=== PATIENT | male | born 1985 | race Caucasian/White ===

== ENCOUNTER 2018-11-05 16:49 | Emergency (ER) | payer OTHER ==
[2018-11-05 17:00] VITALS: BP 143/76; PULSE 81; RESP 18; TEMP 98.4
--- NOTE | 2018-11-05 18:34 | XR ---
EXAMINATION TYPE: XR forearm RT DATE OF EXAM: 11/05/2018 COMPARISON: NONE HISTORY: Pain TECHNIQUE: 2 views FINDINGS: Radius and ulna appear intact. I see no fracture nor dislocation. Carpal bones are intact. Elbow joint is intact. IMPRESSION: Negative right forearm exam.
--- NOTE | 2018-11-05 18:35 | XR ---
EXAMINATION TYPE: XR elbow complete RT DATE OF EXAM: 11/05/2018 COMPARISON: NONE HISTORY: Elbow pain TECHNIQUE: 3 views FINDINGS: I see no fracture nor dislocation. Joint spaces are normal. There is no sign of elbow joint effusion. IMPRESSION: Negative right elbow exam.
--- NOTE | 2018-11-05 18:36 | XR ---
EXAMINATION TYPE: XR shoulder complete RT DATE OF EXAM: 11/05/2018 COMPARISON: NONE HISTORY: Pain TECHNIQUE: 3 views FINDINGS: There is old mid shaft fracture of the clavicle with callus formation. I see no acute fract ure nor dislocation. Glenohumeral joint is anatomic. IMPRESSION: Old clavicle fracture. No acute bony abnormality.
--- NOTE | 2018-11-05 18:36 | XR ---
EXAMINATION TYPE: XR hand complete RT DATE OF EXAM: 11/05/2018 COMPARISON: NONE HISTORY: Pain TECHNIQUE: 3 views FINDINGS: Metacarpals are intact. Joint spaces are fairly normal. I see no fracture nor dislocation. There are no erosions. IMPRESSION: Negative right hand exam.
--- NOTE | 2018-11-05 18:37 | XR ---
EXAMINATION TYPE: XR humerus RT DATE OF EXAM: 11/05/2018 COMPARISON: NONE HISTORY: Arm pain TECHNIQUE: 2 views FINDINGS: Shoulder joint and elbow joint appear intact. I see no fracture. IMPRESSION: Negative right humerus exam.
--- NOTE | 2018-11-05 19:03 | ED ---
General Adult HPI - General Chief complaint: Upper Respiratory Infection Stated complaint: Elbow injury Time Seen by Provider: 11/05/18 17:04 Source: patient, RN notes reviewed, old records reviewed Mode of arrival: ambulatory Limitations: no limitations - History of Present Illness Initial comments: 33-year-old male patient presents in ED chief complaint of pain and right upper extremity. Patient reports that back in 2012 he had a trauma in which multiple pieces of granite fell on his right upper extremity. Patient states that he did not go to the emergency department after this injury. Patient reports that he later followed up with his primary care provider but is not imaging was obtained. Patient states that within the last year he has had pain in his right shoulder as well as right elbow. 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 Patient points that this exacerbates the pain. Patient denies any recent falls or trauma. Denies any other complaints at this time. Patient requests imaging of the right upper extremity. Reports he recently saw his primary care provider who recommended physical therapy. Systemic: Pt denies fatigue, fever/chills, rash. Pt denies weakness, night sweats, weight loss. Neuro: Pt denies headache, visual disturbances, syncope or pre-syncope. HEENT: Pt denies ocular discharge or irritation, otalgia, rhinorrhea, pharyngitis or notable lymphadenopathy. Cardiopulmonary: Pt denies chest pain, SOB, heart palpitations, dyspnea on exertion. Abdominal/GI: Pt denies abdominal pain, n/v/d. : Pt denies dysuria, burning w/ urination, frequency/urgency. Denies new onset urinary or bowel incontinence. MSK: Pt deniesloss of strength or function in extremities. Neuro: Pt denies new onset weakness, paresthesias. - Related Data Allergies Allergy/AdvReac Type Severity Reaction Status Date / Time No Known Allergies Allergy Verified 11/05/18 16:56 Review of Systems ROS Statement: Those systems with pertinent positive or pertinent negative responses have been documented in the HPI. ROS Other: All systems not noted in ROS Statement are negative. Past Medical History Past Medical History: No Reported History History of Any Multi-Drug Resistant Organisms: None Reported Past Surgical History: No Surgical Hx Reported Past Psychological History: No Psychological Hx Reported Smoking Status: Current every day smoker Past Alcohol Use History: Occasional Past Drug Use History: Marijuana General Exam - General Exam Comments Initial Comments: Constitutional: NAD, AOX3, Pt has pleasant affect. HEENT: NC/AT, trachea midline, neck supple, no lymphadenopathy. Posterior pharynx non erythematous, without exudates. External ears appear normal, without discharge. Mucous membranes moist. Eyes PERRLA, EOM intact. There is no scleral icterus. No pallor noted. Cardiopulmonary: RRR, no murmurs, rubs or gallops, no JVD noted. Lungs CTAB in anterior and posterior painter. No peripheral edema. Abdominal exam: Abdomen soft and non-distended. Abdomen non-tender to palpation in all 4 quadrants. Bowel sounds active in LLQ. No hepatosplenomegaly. No ecchymosis Neuro: CN II-XII grossly intact. No nuchal rigidity. No raccon eyes, no alba sign, no hemotympanum. No cervical spinal tenderness. MSK: Right elbow mildly tender to palpation. No erythema or skin changes. Distal pulses intact and equal. Capillary refill less than 2 seconds. Painful arc positive. Empty can test positive both right-sided. No other areas of point tenderness. No posterior calf tenderness bilaterally, homans sign negative bilaterally. Posterior tibialis and radial pulse +2 bilaterally. Sensation intact in upper and lower extremities. Full active ROM in upper and lower extremities, 5/5 stregnth. Limitations: no limitations Course Vital Signs 11/05/18 16:57 Temperature 98.4 F Pulse Rate 81 Respiratory 18 Rate Blood Pressure 143/76 O2 Sat by Pulse 99 Oximetry Medical Decision Making - Medical Decision Making 33-year-old male patient presents in ED chief complaint of pain and right upper extremity. Patient reports that back in 2012 he had a trauma in which multiple pieces of granite fell on his right upper extremity. Patient states that he did not go to the emergency department after this injury. Patient reports that he later followed up with his primary care provider but is not imaging was obtained. Patient states that within the last year he has had pain in his right shoulder as well as right elbow. 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 Patient points that this exacerbates the pain. Patient denies any recent falls or trauma. Denies any other complaints at this time. Patient requests imaging of the right upper extremity. Reports he recently saw his primary care provider who recommended physical therapy. Pt VSS, afebrile. Physical exam displayed: Right elbow mildly tender to palpation. No erythema or skin changes. Distal pulses intact and equal. Capillary refill less than 2 seconds. Painful arc positive. Empty can test positive both right-sided. No other areas of point tenderness. Plain films of shoulder, humerus, hand, elbow, forearm displayed old healed clavicle fracture midshaft. Patient will be discharged with orthopedic follow-up. Case discussed with Dr. Monterroso. Disposition Clinical Impression: Clavicle fracture Disposition: HOME SELF-CARE Condition: Stable Instructions (If sedation given, give patient instructions): Shoulder Pain (ED), Arthralgia (ED) Additional Instructions: Patient to adhere to previously discussed treatment plan and will take medication(s) as directed. Patient to follow up with PCP in 1-2 days. Patient to return to ED if symptoms do not improve. Follow up with primary care provider and orthopedic consult tomorrow. Return to ER if condition worsens. Is patient prescribed a controlled substance at d/c from ED?: No Referrals: Kory Coffey DO [Primary Care Provider] - 1-2 days Prateek Collier DO [Medical Doctor] - 1-2 days
== END 2018-11-05 19:08 | disposition home or self-care (01) ==
LOC: EC 16:49
DX: M79.601 Pain in right arm (principal); F17.200 Nicotine dependence, unspecified, uncomplicated; Z87.81 Personal history of (healed) traumatic fracture; X50.9XXA Other and unspecified overexertion or strenuous movements or postures, initial encounter
CPT/HCPCS: 99284

== ENCOUNTER 2021-04-13 06:25 | Emergency (ER) | payer OTHER ==
[2021-04-13 06:31] VITALS: RESP 18
[2021-04-13] MEDS ORDERED: ACETAMINOPHEN TAB 500 MG TAB PO STA (06:53)
--- NOTE | 2021-04-13 07:00 | ED ---
General Adult HPI - General Chief complaint: Fever Stated complaint: Fever, Headache Time Seen by Provider: 04/13/21 06:29 Source: patient Mode of arrival: ambulatory Limitations: no limitations - History of Present Illness Initial comments: Patient is a 35-year-old male presenting with CC of fever and headache x 5 days. He states the headache is generalized, throbbing, and responsive to ibuprofen. He denies any headache triggers. Patient states that his fever has been around 101, patient denies taking any Tylenol. He was seen in the clinic 2 days ago, Covid testing and flu testing were negative and general blood work showed no notable abnormalities. He was given an antibiotic and steroid. Patient states he was exposed to mononucleosis on 04/07 and is requesting mono testing. Patient states his symptoms have affected his sleep and he is unable to perform the duties of his job. Patient denies any chest pain, shortness of breath, abdominal pain, nausea, vomiting, cough, congestion, light sensitivity, change in vision, neck stiffness, rash. Constitutional: Admits to fever, chills, CAPONE HEENT: Denies congestion, sore throat, sinus pain, vision changes, eye pain Cardiovascular: Denies chest pain, shortness of breath, palpitations Respiratory: Denies SOB, hemoptysis, cough, history of PE GI: Denies nausea, vomiting, diarrhea, constipation, abdominal pain, hematemesis : Denies dysuria, urgency, frequency, hematuria, flank pain MSK: Denies gait disturbance, injury, loss of ROM Neuro: Denies dizziness, numbness, tingling, weakness, neck stiffness Integument: Denies rash, pruritus, history of similar rash, exposure to allergen - Related Data Home Medications Medication Instructions Recorded Confirmed Amoxic-Pot Clav 875-125Mg 1 tab PO Q12HR 04/13/21 04/13/21 [Augmentin 875-125] Ibuprofen [Motrin Ib] 800 mg PO Q8H PRN 04/13/21 04/13/21 methylPREDNISolone [Medrol Dose See Taper PO DAILY 04/13/21 04/13/21 Pack] Previous Rx's Medication Instructions Recorded Acetaminophen [Tylenol] 325 mg PO Q4H PRN #30 tab 04/13/21 Allergies Allergy/AdvReac Type Severity Reaction Status Date / Time No Known Allergies Allergy Verified 04/13/21 07:50 Review of Systems ROS Statement: Those systems with pertinent positive or pertinent negative responses have been documented in the HPI. ROS Other: All systems not noted in ROS Statement are negative. Past Medical History Past Medical History: No Reported History History of Any Multi-Drug Resistant Organisms: None Reported Past Surgical History: No Surgical Hx Reported Past Psychological History: No Psychological Hx Reported Smoking Status: Current every day smoker Past Alcohol Use History: Occasional Past Drug Use History: Marijuana General Exam Limitations: no limitations General appearance: alert, in no apparent distress Head exam: Present: atraumatic, normocephalic, normal inspection Eye exam: Present: normal appearance, PERRL. Absent: scleral icterus ENT exam: Present: normal exam, mucous membranes moist Neck exam: Present: normal inspection. Absent: tenderness, full ROM, lymphadenopathy Respiratory exam: Present: normal lung sounds bilaterally. Absent: respiratory distress, wheezes, rales, rhonchi, stridor, accessory muscle use Cardiovascular Exam: Present: regular rate, normal rhythm, normal heart sounds. Absent: systolic murmur, diastolic murmur, rubs, gallop, clicks GI/Abdominal exam: Present: soft, normal bowel sounds. Absent: distended, tenderness, guarding, rebound, rigid Neurological exam: Present: alert, CN II-XII intact Psychiatric exam: Present: normal affect, normal mood Skin exam: Present: warm, dry, intact, normal color. Absent: rash Course Vital Signs 04/13/21 04/13/21 06:26 08:03 Temperature 98.8 F 100.3 F H Pulse Rate 94 77 Respiratory 18 18 Rate Blood Pressure 120/85 126/80 O2 Sat by Pulse 99 98 Oximetry Medical Decision Making - Medical Decision Making Patient is a 35-year-old male presenting for evaluation of fever and headache for 5 days. Vital signs are stable. Presentation consistent with viral illness. On exam no neck stiffness and negative Brudzinski's test, patient is A and O 3. Patient was tested for covid and mononucleosis, covid positive. He was administered 1000 mg of acetaminophen for treatment. He was provided with a work note and a prescription for acetaminophen 325mg every 4 hours when nece ssary. Covid isolation guidelines discussed. Discharge parameters were discussed. All questions were answered. Return to the ER with worsening symptoms or new symptoms. Patient conveyed verbal understanding and agreed to the plan. Dr. Chowdhury was my attending. - Lab Data Lab Results 04/13/21 04/13/21 Range/Units 07:02 07:02 Coronavirus (PCR) Detected A (Not Detectd) Heterophile Antibody Negative (Negative) Disposition Clinical Impression: Viral infection, Headache Disposition: HOME SELF-CARE Condition: Good Instructions (If sedation given, give patient instructions): Fever in Adults (ED), Acute Headache (DC) Additional Instructions: Return to ER with any worsening symptoms or new symptoms. Prescriptions: Acetaminophen [Tylenol] 325 mg PO Q4H PRN #30 tab PRN Reason: Headache Is patient prescribed a controlled substance at d/c from ED?: No Referrals: Kory Coffey DO [Primary Care Provider] - 1-2 days Time of Disposition: 07:42
[2021-04-13 08:06] VITALS: BP 126/80; PULSE 77; TEMP 100.3
== END 2021-04-13 08:07 | disposition home or self-care (01) ==
LOC: EC 06:25
DX: J06.9 Acute upper respiratory infection, unspecified (principal); U07.1 COVID-19; F17.200 Nicotine dependence, unspecified, uncomplicated; Z72.89 Other problems related to lifestyle; F12.90 Cannabis use, unspecified, uncomplicated
CPT/HCPCS: 36415; 86308; 87635; 99284

== ENCOUNTER → 2022-12-10 | Outpatient (CLI) | payer OTHER ==
--- NOTE | 2022-12-10 20:27 | CT ---
EXAMINATION TYPE: CT soft tissue neck wo con CT DLP: 579.1 mGycm, Automated exposure control for dose reduction was used. DATE OF EXAM: 12/10/2022 6:37 PM COMPARISON: None CLINICAL INDICATION:Male, 37 years old with history of R59.0 ENLARGED LYMPH NODES; PHH, enlarged lymp h node right side x 6 months TECHNIQUE: Standard enhanced CT of the neck. Axial sections with coronal and sagittal reformats were obtained. Palpable marker placed at the discretion of the patient. Contrast used: None Oral contrast used: none. FINDINGS: Brain: Visualized portions are grossly unremarkable. Orbits: Unremarkable Sinuses: Few scattered retention cysts are present throughout the paranasal sinuses. Spaces of the neck: . Palpable marker placed at the discretion of the patient and correlates with a n onenlarged 5 mm in short axis lymph node. No suspicious masses or enlarged lymph nodes by CT criteria . Musculoskeletal: No acute osseous pathology. Remote right clavicle injury. Lymph nodes: Multiple nonenlarged lymph nodes are seen along both anterior chains of the neck. Vascular structures: Visualized major arteries are patent without evidence of aneurysm. Thoracic Inlet/airway: Airway is patent. The lung apices are clear. Soft tissues/Thyroid: Thyroid and remainder of the soft tissues are unremarkable. Other: none. IMPRESSION Right palpable marker are clear correlates with a nonenlarged 5 mm short axis lymph node. Other proba ble reactive lymph nodes seen throughout the bilateral neck.
== END | disposition home or self-care (01) ==
LOC: RADCTMAIN 18:18
PROVIDERS: ATTEND Family Medicine
DX: R59.0 Localized enlarged lymph nodes (principal)
CPT/HCPCS: 70490